=== PATIENT | female | born 1980 | race American Indian/Alaskan Native ===

== ENCOUNTER 2018-10-04 07:34 | Outpatient (CLI) | payer BC ==
--- NOTE | 2018-10-04 09:55 | Fluoroscopy Report ---
HYSTEROSALPINGOGRAM INDICATION: Infertility FINDINGS: Informed consent was obtained. Sterile technique was utilized. The cervix was visualized wi th use of a speculum. The cervix was cannulated and secured by balloon inflation. Retrograde administ ration of contrast agent was observed under fluoroscopy. The uterine cavity appears within normal guardado its without filling defect. Both fallopian tubes are patent with free spill of contrast bilaterally. IMPRESSION: Hysterosalpingogram within normal limits. Fluoroscopy time: 0.7 minutes Number of fluoroscopic images: 10 Signer Name: Anjum Serrato Jr, MD Signed: 10/04/2018 9:50 AM Workstation Name: [id number]
== END 2018-10-04 07:35 | disposition home or self-care (01) ==
LOC: FLUORO 07:34
PROVIDERS: ATTEND Obstetrics & Gynecology
DX: Z31.41 Encounter for fertility testing (principal); D64.9 Anemia, unspecified; Z79.899 Other long term (current) drug therapy; Z88.2 Allergy status to sulfonamides; Z88.8 Allergy status to other drugs, medicaments and biological substances; Z98.890 Other specified postprocedural states; Z72.89 Other problems related to lifestyle
CPT/HCPCS: 58340; 74740; Q9967